=== PATIENT | male | born 1955 | race Caucasian/White ===

== ENCOUNTER 2021-12-13 14:29 | Emergency (ER) | payer MEDICARE, BC ==
[~2021-12-13] VITALS: Ht 180.3 cm; Wt 84.1 kg
[2021-12-13 14:32] VITALS: BP 158/94
== END 2021-12-13 15:18 | disposition home or self-care (01) ==
LOC: ER 14:29
DX: K40.21 Bilateral inguinal hernia, without obstruction or gangrene, recurrent (principal); R10.30 Lower abdominal pain, unspecified
CPT/HCPCS: 99281